=== PATIENT | female | born 1980 | race Caucasian/White ===

== ENCOUNTER 2020-05-31 19:20 | Emergency (ER) | payer BC, OTHER ==
[~2020-05-31] VITALS: Ht 165 cm; Wt 80.0 kg
--- NOTE | 2020-05-31 19:44 | NUR ---
During this nurse assessment and history taking patient states that her daughter was just diagnosed with Covid. Pt was tested today with a rapid test today and it was negative. Pt reports that she has never had a GRAVES this bad although she states she has had GRAVES similar since she was diagnosed with nephrotic syndrome a month ago.
[2020-05-31] MEDS ORDERED: LORazepam INJ 2 MG/ML (ATIVAN) VIAL IVP PRN (20:00)
--- NOTE | 2020-05-31 20:05 | ED General ---
General Chief Complaint: Cardiac/General Problems Stated Complaint: HIGH BLOOD PRESSURE;HEADACHE Nursing Triage Note: Pt here with high blood pressure. States she has a GRAVES and she is being treated for nephrotic syndrome. Pt reports she has been checking her b/p every 30 minutes this afternoon and it's been going up and down. Nursing Sepsis Screen: No Definite Risk Source of Information: Patient Exam Limitations: No Limitations History of Present Illness Date Seen by Provider: May 31, 2020 Time Seen by Provider: 20:02 Initial Comments To ER with reports of headache. She is currently being treated for nephrotic syndrome under the care of Dr. Hinojosa from nephrology in [place]. Primary care is Dr. POLLARD. She denies any shortness of breath or chest pain. Her headache is bilateral temporal and has been ongoing for a few days. It started mild and got progressively worse. She has been checking her blood pressure every 30 minutes she states. Numbers have been as high as 140/90. Her daughter is under quarantine for being Covid positive. Mother has been quarantining away from daughter. Patient had a negative rapid Covid earlier today. Timing/Duration: 4-6 Hours Severity: Moderate Associated Systoms: Headaches Allergies and Home Medications Allergies Coded Allergies: No Known Drug Allergies (Unverified , 05/31/20) Home Medications Alprazolam 0.5 Mg Tablet, 0.5-1 TAB PO BID PRN for ANXIETY Prescribed by: MATTHEW SPIVEY on 05/31/202049 Patient Home Medication List Home Medication List Reviewed: Yes Review of Systems Review of Systems Constitutional: see HPI; No chills, No fever EENTM: see HPI Respiratory: no symptoms reported; No cough, No dyspnea on exertion, No short of breath Genitourinary: no symptoms reported Musculoskeletal: no symptoms reported Skin: no symptoms reported Psychiatric/Neurological: No Symptoms Reported Hematologic/Lymphatic: No Symptoms Reported Immunological/Allergic: no symptoms reported Past Unvubaz-Lsjdvf-Ctxxah Hx Patient Social History Recent Foreign Travel: No Contact w/Someone Who Travel: No Recent Infectious Disease Expo: Yes Physical Exam Vital Signs Vital Signs - First Documented 05/31/20 19:37 Temp 36.3 Pulse 85 Resp 18 B/P (MAP) 140/96 (111) Pulse Ox 99 O2 Delivery Room Air Capillary Refill : Less Than 3 Seconds Height, Weight, BMI Height: '" Weight: lbs. oz. kg; 29.00 BMI Method: General Appearance: No Apparent Distress, WD/WN, Anxious (Very anxious appearing) Eyes: Bilateral Eye Normal Inspection, Bilateral Eye PERRL, Bilateral Eye EOMI HEENT: PERRL/EOMI, TMs Normal Neck: Full Range of Motion, Normal Inspection Respiratory: Normal Breath Sounds, No Accessory Muscle Use, No Respiratory Distress Cardiovascular: Regular Rate, Rhythm, Normal Peripheral Pulses Gastrointestinal: Normal Bowel Sounds, Non Tender, Soft Extremity: Normal Capillary Refill, Normal Inspection, No Pedal Edema Neurologic/Psychiatric: Alert, Oriented x3 Skin: Normal Color, Warm/Dry Progress/Results/Core Measures Suspected Sepsis Recent Fever Within 48 Hours: No Infection Criteria Present: None New/Unexplained Altered Menta: No Sepsis Screen: No Definite Risk SIRS Temperature: Pulse: 85 Respiratory Rate: 18 Laboratory Tests 05/31/20 20:00: White Blood Count 13.5H Blood Pressure 140 /96 Mean: 111 Laboratory Tests 05/31/20 20:00: Creatinine 0.74, Platelet Count 167, Total Bilirubin 0.4 Results/Orders Lab Results Laboratory Tests Test 05/31/20 20:00 Range/Units White Blood Count 13.5 H 4.3-11.0 10^3/uL Red Blood Count 4.71 3.80-5.11 10^6/uL Hemoglobin 13.8 11.5-16.0 g/dL Hematocrit 41 35-52 % Mean Corpuscular Volume 86 80-99 fL Mean Corpuscular Hemoglobin 29 25-34 pg Mean Corpuscular Hemoglobin Concent 34 32-36 g/dL Red Cell Distribution Width 13.3 10.0-14.5 % Platelet Count 167 130-400 10^3/uL Mean Platelet Volume 9.4 9.0-12.2 fL Immature Granulocyte % (Auto) 1 % Neutrophils (%) (Auto) 88 H 42-75 % Lymphocytes (%) (Auto) 8 L 12-44 % Monocytes (%) (Auto) 3 0-12 % Eosinophils (%) (Auto) 0 0-10 % Basophils (%) (Auto) 0 0-10 % Neutrophils # (Auto) 11.8 H 1.8-7.8 10^3/uL Lymphocytes # (Auto) 1.1 1.0-4.0 10^3/uL Monocytes # (Auto) 0.4 0.0-1.0 10^3/uL Eosinophils # (Auto) 0.0 0.0-0.3 10^3/uL Basophils # (Auto) 0.0 0.0-0.1 10^3/uL Immature Granulocyte # (Auto) 0.1 0.0-0.1 10^3/uL Urine Color YELLOW Urine Clarity CLEAR Urine pH 8.5 5-9 Urine Specific [place] 1.015 L 1.016-1.022 Urine Protein NEGATIVE NEGATIVE Urine Glucose (UA) NEGATIVE NEGATIVE Urine Ketones NEGATIVE NEGATIVE Urine Nitrite NEGATIVE NEGATIVE Urine Bilirubin NEGATIVE NEGATIVE Urine Urobilinogen 0.2 < = 1.0 MG/DL Urine Leukocyte Esterase NEGATIVE NEGATIVE Urine RBC (Auto) NEGATIVE NEGATIVE Urine RBC NONE /HPF Urine WBC 0-2 /HPF Urine Crystals PRESENT H /LPF Urine Amorphous Sediment LARGE ALIRIO PHOSPHATE H /LPF Urine Bacteria TRACE /HPF Urine Casts NONE /LPF Urine Mucus NEGATIVE /LPF Urine Culture Indicated NO Sodium Level 137 135-145 MMOL/L Potassium Level 3.8 3.6-5.0 MMOL/L Chloride Level 101 98-107 MMOL/L Carbon Dioxide Level 26 21-32 MMOL/L Anion Gap 10 5-14 MMOL/L Blood Urea Nitrogen 19 H 7-18 MG/DL Creatinine 0.74 0.60-1.30 MG/DL Estimat Glomerular Filtration Rate > 60 BUN/Creatinine Ratio 26 Glucose Level 114 H 70-105 MG/DL Calcium Level 7.9 L 8.5-10.1 MG/DL Corrected Calcium 8.6 8.5-10.1 MG/DL Total Bilirubin 0.4 0.1-1.0 MG/DL Aspartate Amino Transf (AST/SGOT) 32 5-34 U/L Alanine Aminotransferase (ALT/SGPT) 105 H 0-55 U/L Alkaline Phosphatase 82 40-136 U/L C-Reactive Protein High Sensitivity 0.20 0.00-0.50 MG/DL Total Protein 5.4 L 6.4-8.2 GM/DL Albumin 3.1 L 3.2-4.5 GM/DL Serum Test, Qualitative NEGATIVE NEGATIVE Coronavirus 2019 (JOSELUIS) Negative Negative My Orders Orders - MATTHEW SPIVEY APRN Lorazepam Injection (Ativan Injection) (05/31/20 20:00) Medications Given in ED Current Medications Medications Dose Ordered Sig/Mary Route Start Time Stop Time Status Last Admin Dose Admin Lorazepam 0.5 mg ONCE PRN IVP 05/31/20 20:00 05/31/20 19:56 0.5 MG Vital Signs/I&O 05/31/20 19:37 Temp 36.3 Pulse 85 Resp 18 B/P (MAP) 140/96 (111) Pulse Ox 99 O2 Delivery Room Air Capillary Refill : Less Than 3 Seconds Blood Pressure Mean: 111 Departure Communication (Admissions) 2046-Headache almost gone. All she's had is ativan 0.5mg IV. BP 122/95. Will dc to home. Impression Primary Impression: Medication side effect Additional Impressions: Hypertension Headache Nephrotic syndrome Disposition: HOME, SELF-CARE Condition: Improved Departure-Patient Inst. Decision time for Depature: 20:43 Referrals: YAMILETH POLLARD DO (PCP) Primary Care Physician Patient Instructions: Headache, Adult, MEDICATION REACTION Add. Discharge Instructions: 1. return to er for any concerns 2. Follow up with your doctor this week. Unfortunatly the steroids are needed for management of your nephrotic syndrome but a side effect is insomnia, agitation, anxiety, irritability. Take the medication that [place] prescribed as needed. All discharge instructions reviewed with patient and/or family. Voiced understanding. Scripts Alprazolam (Xanax) 0.5 Mg Tablet 0.5-1 TAB PO BID PRN for ANXIETY, #10 TAB Prov: MATTHEW SPIVEY APRN 05/31/20 Copy Copies To 1: YAMILETH POLLARD PETER J APRN May 31, 2020 20:05
[2020-05-31 20:15] LABS: BILIRUBIN,URINE NEGATIVE (NEGATIVE); CLARITY,URINE CLEAR; COLOR,URINE YELLOW; GLUCOSE, URINE (UA) NEGATIVE (NEGATIVE); KETONES,URINE NEGATIVE (NEGATIVE); LEUKOCYTE ESTERASE ,URINE NEGATIVE (NEGATIVE); NITRITE,URINE NEGATIVE (NEGATIVE); PH,URINE 8.5 (5-9); PROTEIN,URINE NEGATIVE (NEGATIVE)
[2020-05-31 20:19] LABS: BASOPHILS % (AUTO) 0 % (0-10); EOSINOPHILS % (AUTO) 0 % (0-10); HEMATOCRIT 41 % (35-52); HEMOGLOBIN 13.8 g/dL (11.5-16.0); LYMPHOCYTES # (AUTO) 1.1 10^3/uL (1.0-4.0); LYMPHOCYTES % (AUTO) 8 % (12-44); MEAN CORPUSCULAR HEMOGLOBIN 29 pg (25-34); MEAN CORPUSCULAR HGB CONC 34 g/dL (32-36); MEAN CORPUSCULAR VOLUME 86 fL (80-99); MEAN PLATELET VOLUME 9.4 fL (9.0-12.2); MONOCYTES # (AUTO) 0.4 10^3/uL (0.0-1.0); MONOCYTES % (AUTO) 3 % (0-12); NEUTROPHILS # (AUTO) 11.8 10^3/uL (1.8-7.8); NEUTROPHILS % (AUTO) 88 % (42-75); PLATELET COUNT 167 10^3/uL (130-400); WHITE BLOOD COUNT 13.5 10^3/uL (4.3-11.0)
[2020-05-31 20:38] LABS: ALANINE AMINOTRANSFERASE 105 U/L (0-55); ALBUMIN 3.1 GM/DL (3.2-4.5); ALKALINE PHOSPHATASE 82 U/L (40-136); BILIRUBIN,TOTAL 0.4 MG/DL (0.1-1.0); BUN/CREATININE RATIO 26; CALCIUM 7.9 MG/DL (8.5-10.1); CARBON DIOXIDE 26 MMOL/L (21-32); CHLORIDE 101 MMOL/L (98-107); CREATININE SERUM 0.74 MG/DL (0.60-1.30); GFR ESTIMATED > 60; GLUCOSE 114 MG/DL (70-105); POTASSIUM 3.8 MMOL/L (3.6-5.0); SODIUM 137 MMOL/L (135-145); TOTAL PROTEIN 5.4 GM/DL (6.4-8.2)
[2020-05-31 20:40] LABS: AMORPHOUS SEDIMENT,UR LARGE AMOR PHOSPHATE /LPF; BACTERIA,URINE TRACE /HPF; WBC,URINE 0-2 /HPF
[2020-05-31] MEDS ORDERED: ALPR0.5T PO (20:50)
[2020-05-31 20:58] LABS: TSH (THYROID ANALYZER) 2.34 UIU/ML (0.35-4.94)
[2020-05-31 21:03] VITALS: BP 122/95
--- NOTE | 2020-05-31 21:15 | NUR ---
Pt discharged by EDIE Tatum. Pt reportedly vomited at discharge registration desk. program support clerk offered to get the nurse or provider but pt refused. This nurse called patient to check on her but got voicemail; this nurse left a voicemail and requested pt call back and report any concerns. Pt reported no nausea or vomiting during her stay or previously in the day.
[2020-05-31 21:28] LABS: LYMPHOCYTES % (MANUAL) 6 %; MONOCYTES % (MANUAL) 5 %; NEUTROPHILS % (MANUAL) 89 %; RBC MORPH NORMAL
== END 2020-05-31 21:04 | disposition home or self-care (01) ==
LOC: ER 19:22
DX: T50.905A Adverse effect of unspecified drugs, medicaments and biological substances, initial encounter (principal); I10 Essential (primary) hypertension; N04.9 Nephrotic syndrome with unspecified morphologic changes; F41.9 Anxiety disorder, unspecified; Z20.828 Contact with and (suspected) exposure to other viral communicable diseases; Z32.02 Encounter for pregnancy test, result negative
CPT/HCPCS: 80053; 81000; 84443; 84703; 85007; 85027; 86141; 99284; U0002; 36415; 87635

== ENCOUNTER → 2020-07-01 | Outpatient (CLI) | payer BC ==
[~2020-07-01] MED LIST: ALPR0.5T PO
--- NOTE | 2020-07-01 08:43 | Diagnostic Imaging Report ---
INDICATION: Elevated liver enzymes. PROCEDURE: Ultrasound abdomen complete. TECHNIQUE: Multiple real-time grayscale images were obtained of the abdomen in various projections. The liver is enlarged at 20 cm. No discrete liver mass is identified. The portal vein is patent and shows normal direction of flow. Gallbladder is without stones or sludge. No wall thickening or biliary duct dilatation is seen. Pancreas is unremarkable. Spleen is normal in size at 11.8 cm. Aorta is nonaneurysmal. IVC is patent. The right and left kidneys demonstrate normal cortical thickness and echogenicity. No calculi or hydronephrosis is identified. There is no ascites. IMPRESSION: 1. Mild hepatomegaly. 2. No evidence of cholelithiasis or acute cholecystitis. Dictated by: Dictated on workstation # [id number]
== END ==
LOC: RAD 06:57
PROVIDERS: ATTEND Internal Medicine Nephrology
DX: R94.5 Abnormal results of liver function studies (principal); R16.0 Hepatomegaly, not elsewhere classified
CPT/HCPCS: 76700